=== PATIENT | male | born 1980 | race Caucasian/White ===

== ENCOUNTER 2020-10-03 20:23 | Emergency (ER) | payer OTHER ==
[~2020-10-03] VITALS: Ht 175.3 cm; Wt 103.5 kg
[2020-10-03 20:33] VITALS: BP 130/89
[2020-10-03] MEDS ORDERED: LIDOCAINE-MPF 1%, 5ML INFIL ONE (21:00)
[2020-10-03] MEDS ORDERED: IBUPROFEN 600 MG TABLET ONE (22:42)
[2020-10-03] MEDS ORDERED: LIDOCAINE-MPF 1%, 5ML ONE (22:44)
[2020-10-03] MEDS ORDERED: IBUPROFEN 600 MG TABLET PO ONE (23:00)
[2020-10-03] MEDS ORDERED: NEOSPORIN OINT. PKT 1 PACKET ONE (23:09)
== END 2020-10-03 23:46 | disposition home or self-care (01) ==
LOC: ED 23:15
DX: S61.411A Laceration without foreign body of right hand, initial encounter (principal); F10.10 Alcohol abuse, uncomplicated; Z72.9 Problem related to lifestyle, unspecified; X58.XXXA Exposure to other specified factors, initial encounter; Y93.89 Activity, other specified; Y92.89 Other specified places as the place of occurrence of the external cause; Y99.8 Other external cause status; Y90.0 Blood alcohol level of less than 20 mg/100 ml
CPT/HCPCS: 12041; 99284